=== PATIENT | female | born 1955 | race Caucasian/White ===

== ENCOUNTER 2020-08-12 12:49 | Inpatient (IN) ==
[2020-08-12] MEDS ORDERED: Ipratropium/Albuterol Neb 3 ML IH ONE (17:32)
[2020-08-12] MEDS ORDERED: Nitroglycerin 0.4 MG TAB.SUBL SL SCH (18:15)
[2020-08-12] MEDS: Ipratropium/Albuterol Neb 3 ML IH SCH ×2 (19:47→23:43)
[2020-08-12] MEDS ORDERED: Nitroglycerin 0.4 MG TAB.SUBL SL PRN (20:28)
[2020-08-12] MEDS ORDERED: 0.9 % Sodium Chloride 250 ML ONE (21:09)
[2020-08-12] MEDS: Artificial Tears SOLN 15 ML BOTTLE BOTH EYES SCH (22:15)
[2020-08-12] MEDS: Metoclopramide 10 MG/10 ML UD.LIQ GTUBE SCH (22:34)
[2020-08-12] MEDS: rOPINIRole 1 MG TABLET GTUBE SCH (22:35)
[2020-08-13] MEDS ORDERED: Ipratropium/Albuterol Neb 3 ML IH SCH
[2020-08-13] MEDS: Artificial Tears SOLN 15 ML BOTTLE BOTH EYES SCH ×5 (00:15→18:41)
[2020-08-13] MEDS ORDERED: 0.9 % Sodium Chloride 250 ML ONE (01:50)
[2020-08-13] MEDS: Ipratropium/Albuterol Neb 3 ML IH SCH ×6 (04:06→23:38)
[2020-08-13 06:51] LABS: Basophils # 0.1 K/mcL (0.0-0.2); Basophils % 0.5 %; Eosinophils # 0.5 K/mcL (0.0-0.6); Eosinophils % 4.2 %; Hematocrit 27.9 % (35.3-44.9); Hemoglobin 9.1 g/dL (11.5-15.4); Immature Granulocytes % 0.4 % (0-4); Lymphocytes # 0.9 K/mcL (0.6-4.6); Lymphocytes % 8.2 %; Mean Corpuscular HGB Conc 32.6 g/dL (31.6-35.5); Mean Corpuscular Hemoglobin 33.1 pg (28.0-33.3); Mean Corpuscular Volume 101.5 fL (83.0-100.0); Mean Platelet Volume 9.7 fL (9.4-12.4); Monocytes # 1.4 K/mcL (0.0-1.3); Monocytes % 12.3 %; Neutrophils # 8.4 K/mcL (1.6-8.9); Platelet Count 199 K/mcL (140-400); Red Blood Count 2.75 M/mcL (3.82-4.97); Red Cell Distribution Width 18.7 % (11.5-14.5); Segmented Neutrophils % 74.4 %; White Blood Count 11.3 K/mcL (4.3-11.1)
[2020-08-13 07:11] LABS: Calcium 9.6 mg/dL (8.6-10.3); Potassium 4.8 mEq/L (3.5-5.1)
[2020-08-13] MEDS ORDERED: carvediloL 6.25 MG TABLET GTUBE SCH (08:00)
[2020-08-13] MEDS: Metoclopramide 10 MG/10 ML UD.LIQ GTUBE SCH ×2 (08:22→20:59)
[2020-08-13] MEDS: rOPINIRole 1 MG TABLET GTUBE SCH ×2 (08:22→20:58)
[2020-08-13] MEDS: Fluconazole 40 MG/ML UDC PO SCH (08:24)
[2020-08-13 08:46] LABS: Prothrombin Time 11.9 Seconds (9.4-12.1)
[2020-08-13] MEDS ORDERED: *HR* Propofol 200 MG/20 ML VIAL IVP ONE (10:48)
[2020-08-13 11:17] LABS: Hepatitis B Surface Antibody < 3.10 mIU/mL
[2020-08-13 11:28] LABS: Hepatitis B Surface Antigen Nonreactive (Nonreactive)
[2020-08-13] MEDS ORDERED: NON-FORMULARY MEDICATION 1 EACH EACH (Midodrine Hcl 10 MG Tablet) PO SCH (18:30)
[2020-08-13] MEDS: levETIRAcetam 500 MG/5 ML UDC GTUBE SCH (20:59)
[2020-08-13] MEDS: Chlorhexidine Rinse 15 ML MOUTHWASH MM SCH (20:59)
[2020-08-13] MEDS: Melatonin 3 MG TABLET GTUBE SCH (21:00)
[2020-08-14 01:24] LABS: Hematocrit 25.4 % (35.3-44.9); Mean Corpuscular HGB Conc 31.5 g/dL (31.6-35.5); Mean Corpuscular Hemoglobin 32.1 pg (28.0-33.3); Mean Platelet Volume 9.7 fL (9.4-12.4); Platelet Count 180 K/mcL (140-400); Red Blood Count 2.49 M/mcL (3.82-4.97); Red Cell Distribution Width 18.6 % (11.5-14.5)
[2020-08-14 01:47] LABS: Calcium 9.4 mg/dL (8.6-10.3); Potassium 4.8 mEq/L (3.5-5.1)
[2020-08-14] MEDS: Ipratropium/Albuterol Neb 3 ML IH SCH ×5 (03:54→20:39)
[2020-08-14] MEDS: Artificial Tears SOLN 15 ML BOTTLE BOTH EYES SCH ×7 (05:29→21:46)
[2020-08-14] MEDS ORDERED: 0.9 % Sodium Chloride 2,000 ML ONE (06:39)
[2020-08-14] MEDS ORDERED: *HR* Heparin 10,000 UNIT/10 ML VIAL IV PRN (07:31)
[2020-08-14] MEDS ORDERED: 0.9 % Sodium Chloride 250 ML IVC PRN (07:31)
[2020-08-14] MEDS ORDERED: 0.9 % Sodium Chloride 1,000 ML PRIME SCH (07:45)
[2020-08-14] MEDS ORDERED: predniSONE 10 MG TABLET GTUBE SCH (09:00)
[2020-08-14] MEDS: Chlorhexidine Rinse 15 ML MOUTHWASH MM SCH ×2 (09:28→21:45)
[2020-08-14] MEDS: Metoclopramide 10 MG/10 ML UD.LIQ GTUBE SCH ×2 (09:28→21:45)
[2020-08-14] MEDS: levETIRAcetam 500 MG/5 ML UDC GTUBE SCH ×2 (09:29→21:44)
[2020-08-14] MEDS: rOPINIRole 1 MG TABLET GTUBE SCH ×2 (09:32→21:44)
[2020-08-14] MEDS ORDERED: *HR* Dextrose 50 % in Water (Vial) 50 ML VIAL IVP PRN (11:10)
[2020-08-14] MEDS ORDERED: Dextrose Gel 15 GM/37.5 ML TUBE PO PRN ×2 (11:10)
[2020-08-14] MEDS ORDERED: D5% in Water 1,000 ML IVC PRN (11:10)
[2020-08-14] MEDS: Insulin LISPRO 300 UNITS/3 ML VIAL SUBQ SCH ×3 (14:16→21:46)
[2020-08-14] MEDS ORDERED: Insulin DETEMIR 100 UNIT/ML X5UNITS SUBQ SCH (21:00)
[2020-08-14] MEDS: Melatonin 3 MG TABLET GTUBE SCH (21:44)
[2020-08-15] MEDS: Artificial Tears SOLN 15 ML BOTTLE BOTH EYES SCH ×6 (00:20→22:15)
[2020-08-15] MEDS: Insulin LISPRO 300 UNITS/3 ML VIAL SUBQ SCH ×6 (00:20→22:16)
[2020-08-15] MEDS: Ipratropium/Albuterol Neb 3 ML IH SCH ×7 (00:22→22:52)
[2020-08-15 05:32] LABS: Hematocrit 23.8 % (35.3-44.9); Hemoglobin 7.8 g/dL (11.5-15.4); Mean Corpuscular HGB Conc 32.8 g/dL (31.6-35.5); Mean Corpuscular Hemoglobin 33.5 pg (28.0-33.3); Mean Corpuscular Volume 102.1 fL (83.0-100.0); Mean Platelet Volume 9.7 fL (9.4-12.4); Platelet Count 190 K/mcL (140-400); Red Blood Count 2.33 M/mcL (3.82-4.97); Red Cell Distribution Width 18.4 % (11.5-14.5); White Blood Count 8.9 K/mcL (4.3-11.1)
[2020-08-15 05:50] LABS: Calcium 9.4 mg/dL (8.6-10.3); Magnesium 2.2 mg/dL (1.6-2.6)
[2020-08-15 05:52] LABS: Phosphorous 4.1 mg/dL (2.7-4.5)
[2020-08-15] MEDS ORDERED: Iron Sucrose Complex 400 MG in 0.9 % Sodium Chloride 250 ML IVPB ONE (07:14)
[2020-08-15] MEDS: rOPINIRole 1 MG TABLET GTUBE SCH ×2 (07:28→22:13)
[2020-08-15] MEDS: Sennosides/Docusate Sodium TABLET GTUBE SCH (07:29)
[2020-08-15] MEDS: Metoclopramide 10 MG/10 ML UD.LIQ GTUBE SCH ×2 (07:30→22:15)
[2020-08-15] MEDS: levETIRAcetam 500 MG/5 ML UDC GTUBE SCH ×2 (07:30→22:15)
[2020-08-15] MEDS: Chlorhexidine Rinse 15 ML MOUTHWASH MM SCH ×2 (07:30→22:14)
[2020-08-15] MEDS: Fluconazole 40 MG/ML UDC GTUBE SCH (07:35)
[2020-08-15] MEDS ORDERED: Isovue-370 500 ML BOTTLE IVP ONE (08:28)
[2020-08-15] MEDS ORDERED: Vancomycin 1,750 MG/517.5 ML IV.SOLN IVPB ONE (08:51)
[2020-08-15] MEDS ORDERED: Vancomycin 1,750 MG in 0.9 % Sodium Chloride 250 ML IVPB SCH (09:00)
[2020-08-15] MEDS ORDERED: Aspirin Enteric Coated 81 MG Tablet PO SCH (09:00)
[2020-08-15] MEDS: Cefepime HCl 1,000 MG in 0.9 % Sodium Chloride Mini Bag 100 ML IVPB SCH (10:52)
[2020-08-15] MEDS: MetroNIDAZOLE 500 MG/100 ML 500 MG/100 ML BAG IVPB SCH ×2 (10:52→15:32)
[2020-08-15] MEDS ORDERED: Isovue-370 500 ML BOTTLE PO ONE (11:53)
[2020-08-15] MEDS: Melatonin 3 MG TABLET GTUBE SCH (22:14)
[2020-08-15] MEDS: Insulin DETEMIR 100 UNIT/ML X5UNITS SUBQ SCH (22:15)
[2020-08-16] MEDS: MetroNIDAZOLE 500 MG/100 ML 500 MG/100 ML BAG IVPB SCH ×3 (00:17→22:08)
[2020-08-16] MEDS: Insulin LISPRO 300 UNITS/3 ML VIAL SUBQ SCH ×7 (00:18→23:50)
[2020-08-16] MEDS: Artificial Tears SOLN 15 ML BOTTLE BOTH EYES SCH ×7 (00:18→23:49)
[2020-08-16 01:46] LABS: Basophils % 0.4 %; Eosinophils # 0.5 K/mcL (0.0-0.6); Eosinophils % 4.2 %; Hematocrit 24.7 % (35.3-44.9); Hemoglobin 7.8 g/dL (11.5-15.4); Immature Granulocytes % 0.3 % (0-4); Lymphocytes # 0.5 K/mcL (0.6-4.6); Lymphocytes % 4.4 %; Mean Corpuscular HGB Conc 31.6 g/dL (31.6-35.5); Mean Corpuscular Hemoglobin 33.1 pg (28.0-33.3); Mean Corpuscular Volume 104.7 fL (83.0-100.0); Mean Platelet Volume 9.4 fL (9.4-12.4); Monocytes # 1.1 K/mcL (0.0-1.3); Monocytes % 10.1 %; Neutrophils # 9.1 K/mcL (1.6-8.9); Platelet Count 190 K/mcL (140-400); Red Blood Count 2.36 M/mcL (3.82-4.97); Red Cell Distribution Width 18.4 % (11.5-14.5); Segmented Neutrophils % 80.6 %; White Blood Count 11.3 K/mcL (4.3-11.1)
[2020-08-16 02:10] LABS: Albumin 3.1 g/dL (3.5-5.7); Albumin/Globulin Ratio 1.2 (1.1-2.2); Bilirubin,Total 0.4 mg/dL (0.3-1.0); Calcium 9.6 mg/dL (8.6-10.3); Globulin 2.6 g/dL (2.4-3.5); Magnesium 2.4 mg/dL (1.6-2.6); Phosphorous 4.8 mg/dL (2.7-4.5); Potassium 3.9 mEq/L (3.5-5.1); Total Protein 5.7 g/dL (6.4-8.9)
[2020-08-16] MEDS: Ipratropium/Albuterol Neb 3 ML IH SCH ×6 (04:09→23:13)
[2020-08-16] MEDS ORDERED: 0.9 % Sodium Chloride 250 ML IVC PRN (07:36)
[2020-08-16] MEDS ORDERED: 0.9 % Sodium Chloride 1,000 ML PRIME SCH (07:45)
[2020-08-16] MEDS: Docusate Oral Soln 100 MG/10 ML UDC GTUBE SCH (10:00)
[2020-08-16] MEDS: Aspirin 81 MG TAB.CHEW GTUBE SCH (10:01)
[2020-08-16] MEDS: Sennosides/Docusate Sodium TABLET GTUBE SCH (10:01)
[2020-08-16] MEDS: rOPINIRole 1 MG TABLET GTUBE SCH ×2 (10:01→20:02)
[2020-08-16] MEDS: levETIRAcetam 500 MG/5 ML UDC GTUBE SCH ×2 (10:01→20:03)
[2020-08-16] MEDS: Metoclopramide 10 MG/10 ML UD.LIQ GTUBE SCH ×2 (10:01→20:02)
[2020-08-16] MEDS: Chlorhexidine Rinse 15 ML MOUTHWASH MM SCH ×2 (10:02→20:08)
[2020-08-16] MEDS: Fluconazole 40 MG/ML UDC GTUBE SCH (13:54)
[2020-08-16 15:42] LABS: Adenovirus Not Detected (Not Detect); Bordetella Pertussis Not Detected (Not Detect); Chlamydophila pneumoniae Not Detected (Not Detect); Coronavirus 229E Not Detected (Not Detect); Coronavirus HKU1 Not Detected (Not Detect); Coronavirus NL63 Not Detected (Not Detect); Coronavirus OC43 Not Detected (Not Detect); Human Metapneumovirus Not Detected (Not Detect); Human Rhinovirus/Enterovirus Not Detected (Not Detect); Influenza A Subtype 2009 H1 Not Detected (Not Detect); Influenza B Not Detected (Not Detect); Mycoplasma pneumoniae Not Detected (Not Detect); Parainfluenza Virus 1 Not Detected (Not Detect); Parainfluenza Virus 2 Not Detected (Not Detect); Parainfluenza Virus 3 Not Detected (Not Detect); Parainfluenza Virus 4 Not Detected (Not Detect); Respiratory Syncytial Virus Not Detected (Not Detect); SARS-CoV-2 Not Detected (Not Detect)
[2020-08-16] MEDS: Cefepime HCl 1,000 MG in 0.9 % Sodium Chloride Mini Bag 100 ML IVPB SCH (17:52)
[2020-08-16] MEDS: Insulin DETEMIR 100 UNIT/ML X5UNITS SUBQ SCH (20:01)
[2020-08-16] MEDS: Melatonin 3 MG TABLET GTUBE SCH (20:13)
[2020-08-17] MEDS: Insulin LISPRO 300 UNITS/3 ML VIAL SUBQ SCH ×5 (04:11→20:42)
[2020-08-17] MEDS: Artificial Tears SOLN 15 ML BOTTLE BOTH EYES SCH ×5 (04:11→20:43)
[2020-08-17] MEDS: Ipratropium/Albuterol Neb 3 ML IH SCH ×5 (04:15→19:50)
[2020-08-17 05:32] LABS: Basophils % 0.3 %; Eosinophils # 0.8 K/mcL (0.0-0.6); Eosinophils % 7.5 %; Hemoglobin 8.1 g/dL (11.5-15.4); Immature Granulocytes % 0.4 % (0-4); Lymphocytes # 0.5 K/mcL (0.6-4.6); Lymphocytes % 4.9 %; Mean Corpuscular HGB Conc 31.2 g/dL (31.6-35.5); Mean Corpuscular Hemoglobin 33.3 pg (28.0-33.3); Mean Platelet Volume 9.4 fL (9.4-12.4); Monocytes # 1.3 K/mcL (0.0-1.3); Monocytes % 11.9 %; Platelet Count 173 K/mcL (140-400); Red Blood Count 2.43 M/mcL (3.82-4.97); Red Cell Distribution Width 17.9 % (11.5-14.5); White Blood Count 10.7 K/mcL (4.3-11.1)
[2020-08-17] MEDS: MetroNIDAZOLE 500 MG/100 ML 500 MG/100 ML BAG IVPB SCH ×4 (05:37→20:40)
[2020-08-17] MEDS: Fluconazole 40 MG/ML UDC PO SCH (05:40)
[2020-08-17 05:54] LABS: Albumin 3.1 g/dL (3.5-5.7); Albumin/Globulin Ratio 1.2 (1.1-2.2); Bilirubin,Total 0.5 mg/dL (0.3-1.0); Calcium 9.6 mg/dL (8.6-10.3); Globulin 2.6 g/dL (2.4-3.5); Potassium 3.9 mEq/L (3.5-5.1); Total Protein 5.7 g/dL (6.4-8.9)
[2020-08-17] MEDS: Sennosides/Docusate Sodium TABLET GTUBE SCH (09:26)
[2020-08-17] MEDS: Docusate Oral Soln 100 MG/10 ML UDC GTUBE SCH (09:27)
[2020-08-17] MEDS: Chlorhexidine Rinse 15 ML MOUTHWASH MM SCH ×2 (09:28→20:36)
[2020-08-17] MEDS: levETIRAcetam 500 MG/5 ML UDC GTUBE SCH ×2 (09:28→20:36)
[2020-08-17] MEDS: Metoclopramide 10 MG/10 ML UD.LIQ GTUBE SCH ×2 (09:28→20:36)
[2020-08-17] MEDS: rOPINIRole 1 MG TABLET GTUBE SCH ×2 (09:28→20:36)
[2020-08-17] MEDS: Cefepime HCl 1,000 MG in 0.9 % Sodium Chloride Mini Bag 100 ML IVPB SCH ×2 (09:28→20:37)
[2020-08-17] MEDS: Aspirin 81 MG TAB.CHEW GTUBE SCH (09:28)
[2020-08-17] MEDS: Fluconazole 40 MG/ML UDC GTUBE SCH (09:30)
[2020-08-17] MEDS: Insulin DETEMIR 100 UNIT/ML X5UNITS SUBQ SCH (20:35)
[2020-08-17] MEDS: Melatonin 3 MG TABLET GTUBE SCH (20:36)
[2020-08-18] MEDS: Ipratropium/Albuterol Neb 3 ML IH SCH ×7 (00:12→23:23)
[2020-08-18] MEDS: Artificial Tears SOLN 15 ML BOTTLE BOTH EYES SCH ×6 (00:21→20:21)
[2020-08-18] MEDS: Insulin LISPRO 300 UNITS/3 ML VIAL SUBQ SCH ×6 (00:21→20:19)
[2020-08-18 06:06] LABS: Basophils % 0.2 %; Eosinophils # 0.7 K/mcL (0.0-0.6); Eosinophils % 7.5 %; Hemoglobin 7.5 g/dL (11.5-15.4); Immature Granulocytes % 0.3 % (0-4); Lymphocytes # 0.4 K/mcL (0.6-4.6); Lymphocytes % 4.9 %; Mean Corpuscular HGB Conc 31.3 g/dL (31.6-35.5); Mean Corpuscular Volume 105.7 fL (83.0-100.0); Mean Platelet Volume 9.5 fL (9.4-12.4); Monocytes # 0.8 K/mcL (0.0-1.3); Monocytes % 9.7 %; Neutrophils # 6.7 K/mcL (1.6-8.9); Platelet Count 166 K/mcL (140-400); Red Blood Count 2.27 M/mcL (3.82-4.97); Red Cell Distribution Width 17.4 % (11.5-14.5); Segmented Neutrophils % 77.4 %; White Blood Count 8.6 K/mcL (4.3-11.1)
[2020-08-18 06:27] LABS: Albumin 2.8 g/dL (3.5-5.7); Albumin/Globulin Ratio 1.1 (1.1-2.2); Bilirubin,Total 0.5 mg/dL (0.3-1.0); Calcium 9.8 mg/dL (8.6-10.3); Globulin 2.5 g/dL (2.4-3.5); Potassium 3.8 mEq/L (3.5-5.1); Total Protein 5.3 g/dL (6.4-8.9)
[2020-08-18] MEDS: MetroNIDAZOLE 500 MG/100 ML 500 MG/100 ML BAG IVPB SCH ×3 (07:50→20:22)
[2020-08-18] MEDS: levETIRAcetam 500 MG/5 ML UDC GTUBE SCH ×2 (07:50→20:23)
[2020-08-18] MEDS: rOPINIRole 1 MG TABLET GTUBE SCH ×2 (07:51→20:23)
[2020-08-18] MEDS: Aspirin 81 MG TAB.CHEW GTUBE SCH (07:51)
[2020-08-18] MEDS: Metoclopramide 10 MG/10 ML UD.LIQ GTUBE SCH ×2 (07:51→20:23)
[2020-08-18] MEDS: Chlorhexidine Rinse 15 ML MOUTHWASH MM SCH ×2 (07:51→20:23)
[2020-08-18] MEDS: Docusate Oral Soln 100 MG/10 ML UDC GTUBE SCH (07:52)
[2020-08-18] MEDS: Sennosides/Docusate Sodium TABLET GTUBE SCH (07:53)
[2020-08-18] MEDS: Fluconazole 40 MG/ML UDC GTUBE SCH (12:29)
[2020-08-18] MEDS: Insulin DETEMIR 100 UNIT/ML X5UNITS SUBQ SCH (20:22)
[2020-08-18] MEDS: Melatonin 3 MG TABLET GTUBE SCH (20:23)
[2020-08-19] MEDS: Insulin LISPRO 300 UNITS/3 ML VIAL SUBQ SCH ×6 (00:02→21:22)
[2020-08-19] MEDS: Artificial Tears SOLN 15 ML BOTTLE BOTH EYES SCH ×6 (00:03→20:44)
[2020-08-19] MEDS: Ipratropium/Albuterol Neb 3 ML IH SCH ×6 (04:11→22:49)
[2020-08-19 04:49] LABS: Basophils % 0.3 %; Eosinophils # 0.6 K/mcL (0.0-0.6); Eosinophils % 6.7 %; Hematocrit 24.1 % (35.3-44.9); Hemoglobin 7.7 g/dL (11.5-15.4); Immature Granulocytes % 0.4 % (0-4); Lymphocytes # 0.4 K/mcL (0.6-4.6); Lymphocytes % 4.7 %; Mean Corpuscular Hemoglobin 33.9 pg (28.0-33.3); Mean Corpuscular Volume 106.2 fL (83.0-100.0); Mean Platelet Volume 9.5 fL (9.4-12.4); Monocytes % 10.4 %; Neutrophils # 7.2 K/mcL (1.6-8.9); Platelet Count 182 K/mcL (140-400); Red Blood Count 2.27 M/mcL (3.82-4.97); Red Cell Distribution Width 17.2 % (11.5-14.5); Segmented Neutrophils % 77.5 %; White Blood Count 9.3 K/mcL (4.3-11.1)
[2020-08-19 05:28] LABS: Albumin 2.8 g/dL (3.5-5.7); Albumin/Globulin Ratio 1.1 (1.1-2.2); Bilirubin,Total 0.5 mg/dL (0.3-1.0); Calcium 9.9 mg/dL (8.6-10.3); Globulin 2.6 g/dL (2.4-3.5); Potassium 4.4 mEq/L (3.5-5.1); Total Protein 5.4 g/dL (6.4-8.9)
[2020-08-19] MEDS: MetroNIDAZOLE 500 MG/100 ML 500 MG/100 ML BAG IVPB SCH ×2 (06:09→12:58)
[2020-08-19] MEDS ORDERED: 0.9 % Sodium Chloride 250 ML IVC PRN (07:33)
[2020-08-19] MEDS ORDERED: 0.9 % Sodium Chloride 1,000 ML PRIME SCH (07:45)
[2020-08-19] MEDS: rOPINIRole 1 MG TABLET GTUBE SCH ×2 (07:48→20:43)
[2020-08-19] MEDS: Docusate Oral Soln 100 MG/10 ML UDC GTUBE SCH (07:48)
[2020-08-19] MEDS: Sennosides/Docusate Sodium TABLET GTUBE SCH (07:49)
[2020-08-19] MEDS: Metoclopramide 10 MG/10 ML UD.LIQ GTUBE SCH ×2 (07:49→20:43)
[2020-08-19] MEDS: levETIRAcetam 500 MG/5 ML UDC GTUBE SCH ×2 (07:49→20:43)
[2020-08-19] MEDS: Aspirin 81 MG TAB.CHEW GTUBE SCH (07:49)
[2020-08-19] MEDS: Chlorhexidine Rinse 15 ML MOUTHWASH MM SCH ×2 (07:49→20:43)
[2020-08-19] MEDS: Fluconazole 40 MG/ML UDC GTUBE SCH (07:50)
[2020-08-19] MEDS: Meropenem 1,000 MG in Water for inj. (sterile) 20 ML IVP SCH (17:01)
[2020-08-19] MEDS: Insulin DETEMIR 100 UNIT/ML X5UNITS SUBQ SCH (20:40)
[2020-08-19] MEDS: Melatonin 3 MG TABLET GTUBE SCH (20:43)
[2020-08-20] MEDS: Insulin LISPRO 300 UNITS/3 ML VIAL SUBQ SCH ×6 (01:27→21:56)
[2020-08-20] MEDS: Artificial Tears SOLN 15 ML BOTTLE BOTH EYES SCH ×6 (01:27→21:32)
[2020-08-20 01:49] LABS: Hematocrit 23.3 % (35.3-44.9); Hemoglobin 7.4 g/dL (11.5-15.4); Mean Corpuscular HGB Conc 31.8 g/dL (31.6-35.5); Mean Corpuscular Hemoglobin 33.5 pg (28.0-33.3); Mean Corpuscular Volume 105.4 fL (83.0-100.0); Mean Platelet Volume 9.5 fL (9.4-12.4); Platelet Count 188 K/mcL (140-400); Red Blood Count 2.21 M/mcL (3.82-4.97); Red Cell Distribution Width 17.2 % (11.5-14.5)
[2020-08-20 02:09] LABS: Calcium 8.7 mg/dL (8.6-10.3); Potassium 3.4 mEq/L (3.5-5.1)
[2020-08-20] MEDS: Ipratropium/Albuterol Neb 3 ML IH SCH ×5 (04:08→19:41)
[2020-08-20] MEDS: Sennosides/Docusate Sodium TABLET GTUBE SCH (09:27)
[2020-08-20] MEDS: rOPINIRole 1 MG TABLET GTUBE SCH ×2 (09:27→21:31)
[2020-08-20] MEDS: levETIRAcetam 500 MG/5 ML UDC GTUBE SCH ×2 (09:28→21:30)
[2020-08-20] MEDS: Docusate Oral Soln 100 MG/10 ML UDC GTUBE SCH (09:28)
[2020-08-20] MEDS: Metoclopramide 10 MG/10 ML UD.LIQ GTUBE SCH ×2 (09:28→21:30)
[2020-08-20] MEDS: Aspirin 81 MG TAB.CHEW GTUBE SCH (09:29)
[2020-08-20] MEDS: Chlorhexidine Rinse 15 ML MOUTHWASH MM SCH ×2 (09:29→21:30)
[2020-08-20] MEDS: Fluconazole 40 MG/ML UDC GTUBE SCH (09:30)
[2020-08-20] MEDS: Meropenem 1,000 MG in Water for inj. (sterile) 20 ML IVP SCH (17:17)
[2020-08-20] MEDS: Melatonin 3 MG TABLET GTUBE SCH (21:32)
[2020-08-20] MEDS: Insulin DETEMIR 100 UNIT/ML X5UNITS SUBQ SCH (21:57)
[2020-08-21] MEDS: Ipratropium/Albuterol Neb 3 ML IH SCH ×7 (00:13→23:44)
[2020-08-21 00:44] LABS: Hematocrit 20.8 % (35.3-44.9); Hemoglobin 6.6 g/dL (11.5-15.4); Mean Corpuscular HGB Conc 31.7 g/dL (31.6-35.5); Mean Corpuscular Hemoglobin 32.7 pg (28.0-33.3); Mean Platelet Volume 9.5 fL (9.4-12.4); Platelet Count 205 K/mcL (140-400); Red Blood Count 2.02 M/mcL (3.82-4.97); Red Cell Distribution Width 17.3 % (11.5-14.5); White Blood Count 8.9 K/mcL (4.3-11.1)
[2020-08-21 01:01] LABS: Calcium 9.3 mg/dL (8.6-10.3); Potassium 3.4 mEq/L (3.5-5.1)
[2020-08-21 01:02] LABS: % Iron Saturation 43 % (15-50); Iron 66 mcg/dL (50-170); Transferrin 109 mg/dL (203-362)
[2020-08-21] MEDS: Artificial Tears SOLN 15 ML BOTTLE BOTH EYES SCH ×6 (01:06→20:19)
[2020-08-21] MEDS: Insulin LISPRO 300 UNITS/3 ML VIAL SUBQ SCH ×6 (01:09→20:51)
[2020-08-21] MEDS ORDERED: 0.9 % Sodium Chloride 250 ML IVC PRN (05:27)
[2020-08-21] MEDS ORDERED: 0.9 % Sodium Chloride 1,000 ML PRIME SCH (05:30)
[2020-08-21] MEDS: Sennosides/Docusate Sodium TABLET GTUBE SCH (10:19)
[2020-08-21] MEDS: rOPINIRole 1 MG TABLET GTUBE SCH ×2 (10:19→20:42)
[2020-08-21] MEDS: Metoclopramide 10 MG/10 ML UD.LIQ GTUBE SCH ×2 (10:20→20:42)
[2020-08-21] MEDS: Docusate Oral Soln 100 MG/10 ML UDC GTUBE SCH (10:20)
[2020-08-21] MEDS: levETIRAcetam 500 MG/5 ML UDC GTUBE SCH ×2 (10:20→20:42)
[2020-08-21] MEDS: Chlorhexidine Rinse 15 ML MOUTHWASH MM SCH ×2 (10:21→20:43)
[2020-08-21] MEDS: Fluconazole 40 MG/ML UDC GTUBE SCH (10:43)
[2020-08-21] MEDS: Meropenem 1,000 MG in Water for inj. (sterile) 20 ML IVP SCH (18:02)
[2020-08-21] MEDS: Melatonin 3 MG TABLET GTUBE SCH (20:42)
[2020-08-21] MEDS: Insulin DETEMIR 100 UNIT/ML X5UNITS SUBQ SCH (20:43)
[2020-08-22] MEDS: Insulin LISPRO 300 UNITS/3 ML VIAL SUBQ SCH ×7 (01:16→23:57)
[2020-08-22] MEDS: Artificial Tears SOLN 15 ML BOTTLE BOTH EYES SCH ×7 (01:20→23:57)
[2020-08-22] MEDS: Ipratropium/Albuterol Neb 3 ML IH SCH ×5 (03:51→19:59)
[2020-08-22 06:15] LABS: Hematocrit 27.5 % (35.3-44.9); Mean Corpuscular HGB Conc 32.4 g/dL (31.6-35.5); Mean Corpuscular Hemoglobin 31.6 pg (28.0-33.3); Mean Corpuscular Volume 97.5 fL (83.0-100.0); Mean Platelet Volume 9.5 fL (9.4-12.4); Platelet Count 200 K/mcL (140-400); Red Blood Count 2.82 M/mcL (3.82-4.97); Red Cell Distribution Width 20.1 % (11.5-14.5); White Blood Count 10.7 K/mcL (4.3-11.1)
[2020-08-22 06:16] LABS: Hemoglobin 8.9 g/dL (11.5-15.4)
[2020-08-22 07:58] LABS: Calcium 9.9 mg/dL (8.6-10.3); Potassium 3.9 mEq/L (3.5-5.1)
[2020-08-22] MEDS: Fluconazole 40 MG/ML UDC GTUBE SCH (08:31)
[2020-08-22] MEDS: Sennosides/Docusate Sodium TABLET GTUBE SCH (08:32)
[2020-08-22] MEDS: Docusate Oral Soln 100 MG/10 ML UDC GTUBE SCH (08:33)
[2020-08-22] MEDS: Chlorhexidine Rinse 15 ML MOUTHWASH MM SCH ×2 (08:33→21:08)
[2020-08-22] MEDS: rOPINIRole 1 MG TABLET GTUBE SCH ×2 (08:33→21:12)
[2020-08-22] MEDS: Metoclopramide 10 MG/10 ML UD.LIQ GTUBE SCH ×2 (08:33→21:12)
[2020-08-22] MEDS: levETIRAcetam 500 MG/5 ML UDC GTUBE SCH (08:33)
[2020-08-22 11:10] LABS: Potassium 3.8 mEq/L (3.5-5.1)
[2020-08-22] MEDS: Meropenem 1,000 MG in Water for inj. (sterile) 20 ML IVP SCH (18:01)
[2020-08-22] MEDS: Insulin DETEMIR 100 UNIT/ML X5UNITS SUBQ SCH (21:12)
[2020-08-22] MEDS: Melatonin 3 MG TABLET GTUBE SCH (21:12)
[2020-08-23] MEDS: Ipratropium/Albuterol Neb 3 ML IH SCH ×6 (00:50→20:17)
[2020-08-23 00:51] LABS: Basophils % 0.4 %; Eosinophils # 0.8 K/mcL (0.0-0.6); Eosinophils % 8.2 %; Hematocrit 26.6 % (35.3-44.9); Hemoglobin 8.6 g/dL (11.5-15.4); Immature Granulocytes % 0.2 % (0-4); Lymphocytes # 0.7 K/mcL (0.6-4.6); Lymphocytes % 7.5 %; Mean Corpuscular HGB Conc 32.3 g/dL (31.6-35.5); Mean Corpuscular Hemoglobin 32.6 pg (28.0-33.3); Mean Corpuscular Volume 100.8 fL (83.0-100.0); Mean Platelet Volume 9.3 fL (9.4-12.4); Monocytes % 10.4 %; Platelet Count 193 K/mcL (140-400); Red Blood Count 2.64 M/mcL (3.82-4.97); Red Cell Distribution Width 19.8 % (11.5-14.5); Segmented Neutrophils % 73.3 %; White Blood Count 9.6 K/mcL (4.3-11.1)
[2020-08-23 01:13] LABS: Calcium 9.7 mg/dL (8.6-10.3); Magnesium 2.4 mg/dL (1.6-2.6); Phosphorous 3.1 mg/dL (2.7-4.5)
[2020-08-23] MEDS: Insulin LISPRO 300 UNITS/3 ML VIAL SUBQ SCH ×5 (04:16→20:54)
[2020-08-23] MEDS: Artificial Tears SOLN 15 ML BOTTLE BOTH EYES SCH ×6 (04:32→23:47)
[2020-08-23] MEDS ORDERED: 0.9 % Sodium Chloride 250 ML IV ONE (07:28)
[2020-08-23] MEDS: Chlorhexidine Rinse 15 ML MOUTHWASH MM SCH ×2 (07:30→20:53)
[2020-08-23] MEDS: Docusate Oral Soln 100 MG/10 ML UDC GTUBE SCH (07:30)
[2020-08-23] MEDS: Sennosides/Docusate Sodium TABLET GTUBE SCH (07:31)
[2020-08-23] MEDS: Fluconazole 40 MG/ML UDC GTUBE SCH (07:31)
[2020-08-23] MEDS: Metoclopramide 10 MG/10 ML UD.LIQ GTUBE SCH ×2 (07:31→20:55)
[2020-08-23] MEDS: rOPINIRole 1 MG TABLET GTUBE SCH ×2 (07:31→20:55)
[2020-08-23] MEDS ORDERED: 0.9 % Sodium Chloride 250 ML IVC PRN (07:43)
[2020-08-23] MEDS ORDERED: 0.9 % Sodium Chloride 1,000 ML PRIME SCH (07:45)
[2020-08-23 07:58] LABS: ABG Base Excess 5 mEq/L (-2 to 3); ABG HCO3 30 mEq/L (21-27); ABG Oxygen Saturation 89 % (95-98); ABG PCO2 47 mmHg (35-45); ABG PH 7.42 pH Units (7.32-7.45); ABG PO2 57 mmHg (85-104); ABG TCO2 32 mEq/L (20-26); Blood Gas VT 400 cc
[2020-08-23] MEDS ORDERED: Acetaminophen IV 1,000 MG/100 ML BAG IVPB ONE (09:09)
[2020-08-23] MEDS ORDERED: *HR* Propofol 200 MG/20 ML VIAL IVP ONE (12:17)
[2020-08-23] MEDS ORDERED: *HR* Phenylephrine 10 MG/ML VIAL IVC ONE (12:17)
[2020-08-23] MEDS ORDERED: 0.9 % Sodium Chloride 1,000 ML IVC ONE ×2 (13:27)
[2020-08-23] MEDS: Norepinephrine 4 MG/254 ML IV.SOLN IVC SCH ×2 (14:59→21:35)
[2020-08-23] MEDS ORDERED: Colistin (Colistimethate) 300 MG in 0.9 % Sodium Chloride 50 ML IVPB ONE (15:15)
[2020-08-23] MEDS: Albumin 25% 25gram/100mL 25 GM/100 ML IV.SOLN IVC SCH ×3 (15:51→20:53)
[2020-08-23 16:42] LABS: Basophils # 0.1 K/mcL (0.0-0.2); Basophils % 0.3 %; Eosinophils # 0.3 K/mcL (0.0-0.6); Hematocrit 28.9 % (35.3-44.9); Hemoglobin 9.3 g/dL (11.5-15.4); Immature Granulocytes % 1.5 % (0-4); Lymphocytes # 0.8 K/mcL (0.6-4.6); Lymphocytes % 2.6 %; Mean Corpuscular HGB Conc 32.2 g/dL (31.6-35.5); Mean Corpuscular Hemoglobin 32.6 pg (28.0-33.3); Mean Corpuscular Volume 101.4 fL (83.0-100.0); Mean Platelet Volume 9.4 fL (9.4-12.4); Monocytes # 2.4 K/mcL (0.0-1.3); Monocytes % 7.7 %; Neutrophils # 27.2 K/mcL (1.6-8.9); Platelet Count 237 K/mcL (140-400); Red Blood Count 2.85 M/mcL (3.82-4.97); Red Cell Distribution Width 19.1 % (11.5-14.5); Segmented Neutrophils % 86.9 %
[2020-08-23 16:47] LABS: Platelet Estimate Normal (Normal); White Blood Count 31.3 K/mcL (4.3-11.1)
[2020-08-23 17:17] LABS: Albumin 2.8 g/dL (3.5-5.7); Albumin/Globulin Ratio 1.1 (1.1-2.2); Bilirubin,Direct 0.2 mg/dL (0.0-0.2); Bilirubin,Indirect 0.4 mg/dL (0.0-1.0); Bilirubin,Total 0.6 mg/dL (0.3-1.0); Calcium 9.2 mg/dL (8.6-10.3); Globulin 2.6 g/dL (2.4-3.5); Potassium 4.8 mEq/L (3.5-5.1); Total Protein 5.4 g/dL (6.4-8.9)
[2020-08-23] MEDS: Meropenem 1,000 MG in Water for inj. (sterile) 20 ML IVP SCH (17:20)
[2020-08-23 17:27] LABS: Troponin I 0.08 ng/mL (< 0.04)
[2020-08-23] MEDS ORDERED: Vancomycin 500 MG in 0.9 % Sodium Chloride Mini Bag 100 ML IVPB ONE (18:00)
[2020-08-23] MEDS: Insulin DETEMIR 100 UNIT/ML X5UNITS SUBQ SCH (20:54)
[2020-08-23] MEDS: Melatonin 3 MG TABLET GTUBE SCH (20:55)
[2020-08-24] MEDS: Ipratropium/Albuterol Neb 3 ML IH SCH ×7 (00:21→23:25)
[2020-08-24 03:32] LABS: Basophils # 0.1 K/mcL (0.0-0.2); Basophils % 0.4 %; Eosinophils # 0.7 K/mcL (0.0-0.6); Eosinophils % 3.4 %; Hematocrit 25.1 % (35.3-44.9); Hemoglobin 8.2 g/dL (11.5-15.4); Immature Granulocytes % 0.7 % (0-4); Lymphocytes # 0.7 K/mcL (0.6-4.6); Lymphocytes % 3.3 %; Mean Corpuscular HGB Conc 32.7 g/dL (31.6-35.5); Mean Corpuscular Hemoglobin 33.2 pg (28.0-33.3); Mean Corpuscular Volume 101.6 fL (83.0-100.0); Mean Platelet Volume 9.2 fL (9.4-12.4); Monocytes # 1.5 K/mcL (0.0-1.3); Monocytes % 7.1 %; Neutrophils # 18.3 K/mcL (1.6-8.9); Platelet Count 200 K/mcL (140-400); Red Blood Count 2.47 M/mcL (3.82-4.97); Red Cell Distribution Width 19.3 % (11.5-14.5); Segmented Neutrophils % 85.1 %; White Blood Count 21.5 K/mcL (4.3-11.1)
[2020-08-24] MEDS: Artificial Tears SOLN 15 ML BOTTLE BOTH EYES SCH ×5 (03:38→19:59)
[2020-08-24 03:51] LABS: Calcium 9.9 mg/dL (8.6-10.3); Magnesium 2.3 mg/dL (1.6-2.6); Phosphorous 2.9 mg/dL (2.7-4.5); Potassium 4.5 mEq/L (3.5-5.1)
[2020-08-24] MEDS: Insulin LISPRO 300 UNITS/3 ML VIAL SUBQ SCH ×6 (04:09→19:59)
[2020-08-24 05:04] LABS: Troponin I 0.08 ng/mL (< 0.04)
[2020-08-24] MEDS ORDERED: 0.9 % Sodium Chloride 250 ML IVC PRN (07:32)
[2020-08-24] MEDS: Metoclopramide 10 MG/10 ML UD.LIQ GTUBE SCH ×2 (08:07→19:57)
[2020-08-24] MEDS: Chlorhexidine Rinse 15 ML MOUTHWASH MM SCH ×2 (08:07→19:56)
[2020-08-24] MEDS: Sennosides/Docusate Sodium TABLET GTUBE SCH (08:08)
[2020-08-24] MEDS: Docusate Oral Soln 100 MG/10 ML UDC GTUBE SCH (08:08)
[2020-08-24] MEDS: Fluconazole 40 MG/ML UDC GTUBE SCH (08:09)
[2020-08-24] MEDS: rOPINIRole 1 MG TABLET GTUBE SCH ×2 (08:09→19:59)
[2020-08-24] MEDS: Norepinephrine 4 MG/254 ML IV.SOLN IVC SCH (15:11)
[2020-08-24] MEDS: Meropenem 1,000 MG in Water for inj. (sterile) 20 ML IVP SCH (16:51)
[2020-08-24] MEDS ORDERED: Colistin (Colistimethate) 130 MG in 0.9 % Sodium Chloride 50 ML IVPB SCH (18:00)
[2020-08-24] MEDS: Insulin DETEMIR 100 UNIT/ML X5UNITS SUBQ SCH (19:57)
[2020-08-24] MEDS: Melatonin 3 MG TABLET GTUBE SCH (19:59)
[2020-08-24] MEDS: Acetylcysteine 10% 2 ML INHSOL IH SCH (20:27)
[2020-08-25 03:30] LABS: Basophils # 0.1 K/mcL (0.0-0.2); Basophils % 0.4 %; Eosinophils # 0.9 K/mcL (0.0-0.6); Eosinophils % 6.5 %; Hematocrit 24.4 % (35.3-44.9); Hemoglobin 7.5 g/dL (11.5-15.4); Immature Granulocytes % 0.4 % (0-4); Lymphocytes # 0.6 K/mcL (0.6-4.6); Lymphocytes % 4.3 %; Mean Corpuscular HGB Conc 30.7 g/dL (31.6-35.5); Mean Corpuscular Hemoglobin 31.9 pg (28.0-33.3); Mean Corpuscular Volume 103.8 fL (83.0-100.0); Mean Platelet Volume 9.3 fL (9.4-12.4); Monocytes # 1.3 K/mcL (0.0-1.3); Monocytes % 9.2 %; Neutrophils # 11.1 K/mcL (1.6-8.9); Platelet Count 191 K/mcL (140-400); Red Blood Count 2.35 M/mcL (3.82-4.97); Red Cell Distribution Width 19.4 % (11.5-14.5); Segmented Neutrophils % 79.2 %
[2020-08-25] MEDS: Artificial Tears SOLN 15 ML BOTTLE BOTH EYES SCH ×6 (03:41→20:43)
[2020-08-25] MEDS: Insulin LISPRO 300 UNITS/3 ML VIAL SUBQ SCH ×5 (03:41→20:42)
[2020-08-25] MEDS: Ipratropium/Albuterol Neb 3 ML IH SCH ×5 (03:50→19:52)
[2020-08-25] MEDS: Acetylcysteine 10% 2 ML INHSOL IH SCH ×4 (03:50→19:52)
[2020-08-25 03:52] LABS: Calcium 9.1 mg/dL (8.6-10.3); Magnesium 2.1 mg/dL (1.6-2.6); Phosphorous 2.6 mg/dL (2.7-4.5); Potassium 3.5 mEq/L (3.5-5.1)
[2020-08-25 04:48] LABS: ABG Base Excess 5 mEq/L (-2 to 3); ABG HCO3 32 mEq/L (21-27); ABG Oxygen Saturation 91 % (95-98); ABG PCO2 57 mmHg (35-45); ABG PH 7.36 pH Units (7.32-7.45); ABG PO2 66 mmHg (85-104); ABG TCO2 34 mEq/L (20-26); Blood Gas VT 400 cc
[2020-08-25] MEDS: Chlorhexidine Rinse 15 ML MOUTHWASH MM SCH ×2 (08:29→20:42)
[2020-08-25] MEDS: Docusate Oral Soln 100 MG/10 ML UDC GTUBE SCH (08:29)
[2020-08-25] MEDS: rOPINIRole 1 MG TABLET GTUBE SCH ×2 (08:30→20:40)
[2020-08-25] MEDS: Sennosides/Docusate Sodium TABLET GTUBE SCH (08:30)
[2020-08-25] MEDS: Metoclopramide 10 MG/10 ML UD.LIQ GTUBE SCH ×2 (08:30→20:40)
[2020-08-25] MEDS: Fluconazole 40 MG/ML UDC GTUBE SCH (08:31)
[2020-08-25] MEDS ORDERED: *HR* Heparin 10,000 UNIT/10 ML VIAL IV PRN (12:55)
[2020-08-25] MEDS ORDERED: Dextrose Gel 15 GM/37.5 ML TUBE PO PRN ×2 (12:55)
[2020-08-25] MEDS ORDERED: Nitroglycerin 0.4 MG TAB.SUBL SL PRN (12:55)
[2020-08-25] MEDS ORDERED: 0.9 % Sodium Chloride 1,000 ML PRIME SCH (12:55)
[2020-08-25] MEDS ORDERED: 0.9 % Sodium Chloride 250 ML IVC PRN (12:55)
[2020-08-25] MEDS ORDERED: D5% in Water 1,000 ML IVC PRN (12:55)
[2020-08-25] MEDS ORDERED: Norepinephrine 4 MG/254 ML IV.SOLN IVC SCH (12:55)
[2020-08-25] MEDS: Meropenem 1,000 MG in Water for inj. (sterile) 20 ML IVP SCH (17:00)
[2020-08-25] MEDS: Colistin (Colistimethate) 130 MG in 0.9 % Sodium Chloride 50 ML IVPB SCH (20:39)
[2020-08-25] MEDS: Melatonin 3 MG TABLET GTUBE SCH (20:40)
[2020-08-25] MEDS: Insulin DETEMIR 100 UNIT/ML X5UNITS SUBQ SCH (20:41)
[2020-08-26] MEDS: Artificial Tears SOLN 15 ML BOTTLE BOTH EYES SCH ×6 (00:01→22:41)
[2020-08-26] MEDS: Ipratropium/Albuterol Neb 3 ML IH SCH ×7 (00:04→23:13)
[2020-08-26] MEDS: Insulin LISPRO 300 UNITS/3 ML VIAL SUBQ SCH ×6 (00:13→22:41)
[2020-08-26 04:01] LABS: Basophils # 0.1 K/mcL (0.0-0.2); Basophils % 0.5 %; Eosinophils # 0.9 K/mcL (0.0-0.6); Eosinophils % 8.4 %; Hematocrit 23.1 % (35.3-44.9); Hemoglobin 7.1 g/dL (11.5-15.4); Immature Granulocytes % 0.4 % (0-4); Lymphocytes # 0.5 K/mcL (0.6-4.6); Lymphocytes % 4.7 %; Mean Corpuscular HGB Conc 30.7 g/dL (31.6-35.5); Mean Corpuscular Hemoglobin 32.4 pg (28.0-33.3); Mean Corpuscular Volume 105.5 fL (83.0-100.0); Mean Platelet Volume 9.4 fL (9.4-12.4); Monocytes % 9.5 %; Neutrophils # 7.7 K/mcL (1.6-8.9); Platelet Count 198 K/mcL (140-400); Red Blood Count 2.19 M/mcL (3.82-4.97); Red Cell Distribution Width 18.6 % (11.5-14.5); Segmented Neutrophils % 76.5 %; White Blood Count 10.1 K/mcL (4.3-11.1)
[2020-08-26] MEDS: Acetylcysteine 10% 2 ML INHSOL IH SCH ×4 (04:02→19:34)
[2020-08-26 04:20] LABS: Calcium 9.3 mg/dL (8.6-10.3); Magnesium 2.2 mg/dL (1.6-2.6); Phosphorous 3.5 mg/dL (2.7-4.5); Potassium 3.8 mEq/L (3.5-5.1)
[2020-08-26] MEDS ORDERED: 0.9 % Sodium Chloride 250 ML IVC PRN (07:07)
[2020-08-26] MEDS: Docusate Oral Soln 100 MG/10 ML UDC GTUBE SCH (15:18)
[2020-08-26] MEDS: rOPINIRole 1 MG TABLET GTUBE SCH ×2 (15:19→22:38)
[2020-08-26] MEDS: Fluconazole 40 MG/ML UDC GTUBE SCH (15:22)
[2020-08-26] MEDS: Metoclopramide 10 MG/10 ML UD.LIQ GTUBE SCH ×2 (15:22→22:39)
[2020-08-26] MEDS: Sennosides/Docusate Sodium TABLET GTUBE SCH (15:23)
[2020-08-26] MEDS: Chlorhexidine Rinse 15 ML MOUTHWASH MM SCH ×2 (15:23→22:38)
[2020-08-26] MEDS ORDERED: 0.9 % Sodium Chloride 250 ML ONE (15:49)
[2020-08-26] MEDS: Meropenem 1,000 MG in Water for inj. (sterile) 20 ML IVP SCH (18:13)
[2020-08-26] MEDS: Colistin (Colistimethate) 130 MG in 0.9 % Sodium Chloride 50 ML IVPB SCH (18:13)
[2020-08-26] MEDS: Melatonin 3 MG TABLET GTUBE SCH (22:39)
[2020-08-26] MEDS: Insulin DETEMIR 100 UNIT/ML X5UNITS SUBQ SCH (22:59)
[2020-08-27] MEDS: Insulin LISPRO 300 UNITS/3 ML VIAL SUBQ SCH ×6 (00:30→20:43)
[2020-08-27] MEDS: Artificial Tears SOLN 15 ML BOTTLE BOTH EYES SCH ×7 (00:30→20:42)
[2020-08-27] MEDS: Ipratropium/Albuterol Neb 3 ML IH SCH ×6 (03:18→23:14)
[2020-08-27] MEDS: Acetylcysteine 10% 2 ML INHSOL IH SCH ×4 (03:19→19:30)
[2020-08-27 05:44] LABS: Basophils # 0.1 K/mcL (0.0-0.2); Basophils % 0.6 %; Eosinophils # 0.8 K/mcL (0.0-0.6); Eosinophils % 9.9 %; Hematocrit 26.3 % (35.3-44.9); Hemoglobin 8.2 g/dL (11.5-15.4); Immature Granulocytes % 0.4 % (0-4); Lymphocytes # 0.7 K/mcL (0.6-4.6); Lymphocytes % 8.1 %; Mean Corpuscular HGB Conc 31.2 g/dL (31.6-35.5); Mean Corpuscular Hemoglobin 32.2 pg (28.0-33.3); Mean Corpuscular Volume 103.1 fL (83.0-100.0); Mean Platelet Volume 9.9 fL (9.4-12.4); Monocytes # 1.2 K/mcL (0.0-1.3); Monocytes % 14.7 %; Neutrophils # 5.3 K/mcL (1.6-8.9); Platelet Count 204 K/mcL (140-400); Red Blood Count 2.55 M/mcL (3.82-4.97); Red Cell Distribution Width 18.7 % (11.5-14.5); Segmented Neutrophils % 66.3 %
[2020-08-27 05:58] LABS: Calcium 9.2 mg/dL (8.6-10.3); Phosphorous 1.8 mg/dL (2.7-4.5); Potassium 3.5 mEq/L (3.5-5.1)
[2020-08-27] MEDS: Chlorhexidine Rinse 15 ML MOUTHWASH MM SCH ×2 (08:10→20:41)
[2020-08-27] MEDS: Metoclopramide 10 MG/10 ML UD.LIQ GTUBE SCH ×2 (08:10→20:41)
[2020-08-27] MEDS: Docusate Oral Soln 100 MG/10 ML UDC GTUBE SCH (08:11)
[2020-08-27] MEDS: rOPINIRole 1 MG TABLET GTUBE SCH ×2 (08:11→20:42)
[2020-08-27] MEDS: Sennosides/Docusate Sodium TABLET GTUBE SCH (08:11)
[2020-08-27] MEDS: Fluconazole 40 MG/ML UDC GTUBE SCH (08:12)
[2020-08-27 08:56] LABS: Source of Body Fluid LLL BAL
[2020-08-27 16:22] LABS: Appearance of Body Fluid Cloudy (Clear); Volume of Body Fluid 15 mL
[2020-08-27] MEDS: Meropenem 1,000 MG in Water for inj. (sterile) 20 ML IVP SCH (17:09)
[2020-08-27] MEDS: Colistin (Colistimethate) 130 MG in 0.9 % Sodium Chloride 50 ML IVPB SCH (20:41)
[2020-08-27] MEDS: Insulin DETEMIR 100 UNIT/ML X5UNITS SUBQ SCH (20:42)
[2020-08-27] MEDS: Melatonin 3 MG TABLET GTUBE SCH (20:42)
[2020-08-27 22:15] LABS: Hepatitis B Surface Antibody < 3.10 mIU/mL
[2020-08-27 22:25] LABS: Hepatitis B Surface Antigen Nonreactive (Nonreactive)
[2020-08-27 22:54] LABS: Hepatitis B Core IgM Nonreactive (Nonreactive)
[2020-08-28] MEDS: Artificial Tears SOLN 15 ML BOTTLE BOTH EYES SCH ×6 (00:33→21:53)
[2020-08-28] MEDS: Insulin LISPRO 300 UNITS/3 ML VIAL SUBQ SCH ×6 (01:03→20:29)
[2020-08-28] MEDS: *HR* Dextrose 50 % in Water (Vial) 50 ML VIAL IVP PRN ×2 (01:15→04:08)
[2020-08-28 02:13] LABS: Basophils # 0.1 K/mcL (0.0-0.2); Eosinophils # 0.8 K/mcL (0.0-0.6); Eosinophils % 11.4 %; Hematocrit 26.2 % (35.3-44.9); Hemoglobin 8.2 g/dL (11.5-15.4); Immature Granulocytes % 0.5 % (0-4); Lymphocytes # 0.7 K/mcL (0.6-4.6); Lymphocytes % 9.4 %; Mean Corpuscular HGB Conc 31.3 g/dL (31.6-35.5); Mean Corpuscular Volume 102.3 fL (83.0-100.0); Mean Platelet Volume 9.4 fL (9.4-12.4); Monocytes % 12.9 %; Neutrophils # 4.8 K/mcL (1.6-8.9); Platelet Count 207 K/mcL (140-400); Red Blood Count 2.56 M/mcL (3.82-4.97); Red Cell Distribution Width 18.1 % (11.5-14.5); Segmented Neutrophils % 64.8 %; White Blood Count 7.3 K/mcL (4.3-11.1)
[2020-08-28 02:36] LABS: Calcium 10.1 mg/dL (8.6-10.3); Magnesium 2.1 mg/dL (1.6-2.6); Phosphorous 4.9 mg/dL (2.7-4.5); Potassium 3.9 mEq/L (3.5-5.1)
[2020-08-28] MEDS: Ipratropium/Albuterol Neb 3 ML IH SCH ×6 (03:16→23:38)
[2020-08-28] MEDS: Acetylcysteine 10% 2 ML INHSOL IH SCH ×4 (03:16→19:59)
[2020-08-28] MEDS ORDERED: 0.9 % Sodium Chloride 2,000 ML ONE (06:29)
[2020-08-28] MEDS: Chlorhexidine Rinse 15 ML MOUTHWASH MM SCH ×2 (08:05→20:27)
[2020-08-28] MEDS: Metoclopramide 10 MG/10 ML UD.LIQ GTUBE SCH ×2 (08:05→20:27)
[2020-08-28] MEDS: Docusate Oral Soln 100 MG/10 ML UDC GTUBE SCH (08:05)
[2020-08-28] MEDS: rOPINIRole 1 MG TABLET GTUBE SCH ×2 (08:06→20:28)
[2020-08-28] MEDS: Sennosides/Docusate Sodium TABLET GTUBE SCH (08:06)
[2020-08-28] MEDS: Fluconazole 40 MG/ML UDC GTUBE SCH (08:15)
[2020-08-28] MEDS: Colistin (Colistimethate) 130 MG in 0.9 % Sodium Chloride 50 ML IVPB SCH (17:26)
[2020-08-28] MEDS: Meropenem 1,000 MG in Water for inj. (sterile) 20 ML IVP SCH (17:27)
[2020-08-28] MEDS ORDERED: Vancomycin 1,500 MG/265 ML IV.SOLN IVPB SCH (18:00)
[2020-08-28] MEDS: Insulin DETEMIR 100 UNIT/ML X5UNITS SUBQ SCH (20:26)
[2020-08-28] MEDS: Melatonin 3 MG TABLET GTUBE SCH (20:28)
[2020-08-28] MEDS: MetroNIDAZOLE 500 MG/100 ML 500 MG/100 ML BAG IVPB SCH (23:58)
[2020-08-29] MEDS: Insulin LISPRO 300 UNITS/3 ML VIAL SUBQ SCH ×7 (00:01→23:36)
[2020-08-29] MEDS: Artificial Tears SOLN 15 ML BOTTLE BOTH EYES SCH ×7 (01:10→23:34)
[2020-08-29] MEDS: Acetylcysteine 10% 2 ML INHSOL IH SCH ×4 (03:33→20:32)
[2020-08-29] MEDS: Ipratropium/Albuterol Neb 3 ML IH SCH ×5 (03:33→20:32)
[2020-08-29 03:41] LABS: White Blood Count 7.4 K/mcL (4.3-11.1)
[2020-08-29 03:42] LABS: Basophils # 0.1 K/mcL (0.0-0.2); Basophils % 0.9 %; Eosinophils # 0.8 K/mcL (0.0-0.6); Eosinophils % 10.6 %; Hematocrit 24.8 % (35.3-44.9); Hemoglobin 7.9 g/dL (11.5-15.4); Immature Granulocytes % 0.3 % (0-4); Lymphocytes # 0.6 K/mcL (0.6-4.6); Lymphocytes % 8.2 %; Mean Corpuscular HGB Conc 31.9 g/dL (31.6-35.5); Mean Corpuscular Hemoglobin 32.8 pg (28.0-33.3); Mean Corpuscular Volume 102.9 fL (83.0-100.0); Mean Platelet Volume 9.9 fL (9.4-12.4); Monocytes % 13.1 %; Platelet Count 180 K/mcL (140-400); Red Blood Count 2.41 M/mcL (3.82-4.97); Red Cell Distribution Width 17.8 % (11.5-14.5); Segmented Neutrophils % 66.9 %
[2020-08-29 03:59] LABS: Calcium 9.8 mg/dL (8.6-10.3); Magnesium 1.9 mg/dL (1.6-2.6); Phosphorous 2.4 mg/dL (2.7-4.5); Potassium 3.8 mEq/L (3.5-5.1)
[2020-08-29 04:22] LABS: ABG Base Excess 7 mEq/L (-2 to 3); ABG HCO3 33 mEq/L (21-27); ABG Oxygen Saturation 93 % (95-98); ABG PCO2 52 mmHg (35-45); ABG PH 7.41 pH Units (7.32-7.45); ABG PO2 67 mmHg (85-104); ABG TCO2 35 mEq/L (20-26); Blood Gas VT 400 cc
[2020-08-29] MEDS: Sennosides/Docusate Sodium TABLET GTUBE SCH (10:27)
[2020-08-29] MEDS: Chlorhexidine Rinse 15 ML MOUTHWASH MM SCH ×2 (10:27→20:25)
[2020-08-29] MEDS: Metoclopramide 10 MG/10 ML UD.LIQ GTUBE SCH ×2 (10:27→20:25)
[2020-08-29] MEDS: rOPINIRole 1 MG TABLET GTUBE SCH ×2 (10:27→20:25)
[2020-08-29] MEDS: Docusate Oral Soln 100 MG/10 ML UDC GTUBE SCH (10:27)
[2020-08-29] MEDS: Fluconazole 40 MG/ML UDC GTUBE SCH (10:28)
[2020-08-29] MEDS: MetroNIDAZOLE 500 MG/100 ML 500 MG/100 ML BAG IVPB SCH ×3 (10:28→23:33)
[2020-08-29] MEDS: Nystatin POWDER 30 GM BOTTLE TP SCH ×2 (10:29→21:58)
[2020-08-29] MEDS: Colistin (Colistimethate) 130 MG in 0.9 % Sodium Chloride 50 ML IVPB SCH (18:25)
[2020-08-29] MEDS ORDERED: Cefepime HCl 2,000 MG in 0.9 % Sodium Chloride Mini Bag 100 ML IVPB ONE (18:36)
[2020-08-29] MEDS: Melatonin 3 MG TABLET GTUBE SCH (20:25)
[2020-08-29] MEDS: Insulin DETEMIR 100 UNIT/ML X5UNITS SUBQ SCH (21:05)
[2020-08-30] MEDS: Ipratropium/Albuterol Neb 3 ML IH SCH ×8 (00:11→23:30)
[2020-08-30 01:27] LABS: Basophils # 0.1 K/mcL (0.0-0.2); Basophils % 1.3 %; Eosinophils # 0.9 K/mcL (0.0-0.6); Eosinophils % 12.2 %; Hematocrit 27.4 % (35.3-44.9); Hemoglobin 8.4 g/dL (11.5-15.4); Immature Granulocytes % 0.6 % (0-4); Lymphocytes # 0.7 K/mcL (0.6-4.6); Lymphocytes % 9.8 %; Mean Corpuscular HGB Conc 30.7 g/dL (31.6-35.5); Mean Corpuscular Hemoglobin 31.9 pg (28.0-33.3); Mean Corpuscular Volume 104.2 fL (83.0-100.0); Mean Platelet Volume 10.1 fL (9.4-12.4); Monocytes # 0.8 K/mcL (0.0-1.3); Monocytes % 11.1 %; Neutrophils # 4.5 K/mcL (1.6-8.9); Platelet Count 198 K/mcL (140-400); Red Blood Count 2.63 M/mcL (3.82-4.97); Red Cell Distribution Width 17.8 % (11.5-14.5)
[2020-08-30 01:47] LABS: Calcium 10.6 mg/dL (8.6-10.3); Magnesium 2.2 mg/dL (1.6-2.6)
[2020-08-30] MEDS: Artificial Tears SOLN 15 ML BOTTLE BOTH EYES SCH ×5 (03:40→20:56)
[2020-08-30] MEDS: Acetylcysteine 10% 2 ML INHSOL IH SCH ×5 (04:03→19:40)
[2020-08-30] MEDS: Insulin LISPRO 300 UNITS/3 ML VIAL SUBQ SCH ×5 (04:28→20:56)
[2020-08-30] MEDS ORDERED: 0.9 % Sodium Chloride 2,000 ML ONE (06:56)
[2020-08-30] MEDS: MetroNIDAZOLE 500 MG/100 ML 500 MG/100 ML BAG IVPB SCH ×2 (12:11→16:55)
[2020-08-30] MEDS: Chlorhexidine Rinse 15 ML MOUTHWASH MM SCH ×2 (12:19→20:54)
[2020-08-30] MEDS: Docusate Oral Soln 100 MG/10 ML UDC GTUBE SCH (12:19)
[2020-08-30] MEDS: Metoclopramide 10 MG/10 ML UD.LIQ GTUBE SCH ×2 (12:19→20:54)
[2020-08-30] MEDS: rOPINIRole 1 MG TABLET GTUBE SCH ×2 (12:19→20:54)
[2020-08-30] MEDS: Sennosides/Docusate Sodium TABLET GTUBE SCH (12:19)
[2020-08-30] MEDS: Fluconazole 40 MG/ML UDC GTUBE SCH (12:20)
[2020-08-30] MEDS: Nystatin POWDER 30 GM BOTTLE TP SCH ×2 (12:32→20:55)
[2020-08-30] MEDS: Cefepime HCl 2,000 MG in Water for inj. (sterile) 20 ML IVP SCH (16:54)
[2020-08-30] MEDS: Colistin (Colistimethate) 130 MG in 0.9 % Sodium Chloride 50 ML IVPB SCH (18:41)
[2020-08-30] MEDS: Melatonin 3 MG TABLET GTUBE SCH (20:54)
[2020-08-30] MEDS: Insulin DETEMIR 100 UNIT/ML X5UNITS SUBQ SCH (20:56)
[2020-08-31] MEDS: MetroNIDAZOLE 500 MG/100 ML 500 MG/100 ML BAG IVPB SCH ×3 (00:17→17:03)
[2020-08-31] MEDS: Insulin LISPRO 300 UNITS/3 ML VIAL SUBQ SCH ×6 (00:18→20:34)
[2020-08-31] MEDS: Artificial Tears SOLN 15 ML BOTTLE BOTH EYES SCH ×6 (00:19→20:26)
[2020-08-31] MEDS: Ipratropium/Albuterol Neb 3 ML IH SCH ×6 (04:24→23:50)
[2020-08-31] MEDS: Acetylcysteine 10% 2 ML INHSOL IH SCH ×4 (04:25→20:15)
[2020-08-31 04:37] LABS: Basophils # 0.1 K/mcL (0.0-0.2); Basophils % 1.3 %; Eosinophils # 0.8 K/mcL (0.0-0.6); Eosinophils % 8.9 %; Hematocrit 27.6 % (35.3-44.9); Hemoglobin 8.6 g/dL (11.5-15.4); Immature Granulocytes % 0.2 % (0-4); Lymphocytes # 0.6 K/mcL (0.6-4.6); Lymphocytes % 7.3 %; Mean Corpuscular HGB Conc 31.2 g/dL (31.6-35.5); Mean Corpuscular Hemoglobin 31.6 pg (28.0-33.3); Mean Corpuscular Volume 101.5 fL (83.0-100.0); Mean Platelet Volume 9.7 fL (9.4-12.4); Monocytes # 1.2 K/mcL (0.0-1.3); Monocytes % 14.7 %; Neutrophils # 5.7 K/mcL (1.6-8.9); Platelet Count 199 K/mcL (140-400); Red Blood Count 2.72 M/mcL (3.82-4.97); Red Cell Distribution Width 17.9 % (11.5-14.5); Segmented Neutrophils % 67.6 %; White Blood Count 8.4 K/mcL (4.3-11.1)
[2020-08-31 04:39] LABS: VBG HCO3 33 mEq/L (21-27); VBG PCO2 56 mmHg (41-51); VBG PH 7.38 pH Units (7.32-7.42); VBG PO2 78 mmHg (25-50)
[2020-08-31 04:57] LABS: Calcium 10.3 mg/dL (8.6-10.3); Phosphorous 1.7 mg/dL (2.7-4.5); Potassium 3.6 mEq/L (3.5-5.1)
[2020-08-31] MEDS: Chlorhexidine Rinse 15 ML MOUTHWASH MM SCH ×2 (07:57→20:27)
[2020-08-31] MEDS: Metoclopramide 10 MG/10 ML UD.LIQ GTUBE SCH ×3 (07:57→20:54)
[2020-08-31] MEDS: Nystatin POWDER 30 GM BOTTLE TP SCH ×2 (07:58→20:26)
[2020-08-31] MEDS: rOPINIRole 1 MG TABLET GTUBE SCH ×3 (07:58→20:59)
[2020-08-31] MEDS: Sennosides/Docusate Sodium TABLET GTUBE SCH (07:58)
[2020-08-31] MEDS: Docusate Oral Soln 100 MG/10 ML UDC GTUBE SCH (07:58)
[2020-08-31] MEDS: Fluconazole 40 MG/ML UDC GTUBE SCH (07:59)
[2020-08-31] MEDS: Colistin (Colistimethate) 130 MG in 0.9 % Sodium Chloride 50 ML IVPB SCH (18:24)
[2020-08-31] MEDS: Melatonin 3 MG TABLET GTUBE SCH ×2 (20:28→20:59)
[2020-08-31] MEDS: Insulin DETEMIR 100 UNIT/ML X5UNITS SUBQ SCH (20:29)
[2020-09-01] MEDS: MetroNIDAZOLE 500 MG/100 ML 500 MG/100 ML BAG IVPB SCH ×3 (01:04→17:07)
[2020-09-01] MEDS: Artificial Tears SOLN 15 ML BOTTLE BOTH EYES SCH ×6 (01:05→20:06)
[2020-09-01] MEDS: Insulin LISPRO 300 UNITS/3 ML VIAL SUBQ SCH ×6 (01:05→20:07)
[2020-09-01] MEDS: Ipratropium/Albuterol Neb 3 ML IH SCH ×6 (03:44→23:11)
[2020-09-01] MEDS: Acetylcysteine 10% 2 ML INHSOL IH SCH ×4 (03:44→20:07)
[2020-09-01 06:53] LABS: VBG HCO3 32 mEq/L (21-27); VBG PCO2 61 mmHg (41-51); VBG PH 7.33 pH Units (7.32-7.42); VBG PO2 59 mmHg (25-50)
[2020-09-01 06:54] LABS: Basophils # 0.1 K/mcL (0.0-0.2); Basophils % 0.8 %; Eosinophils # 0.8 K/mcL (0.0-0.6); Eosinophils % 11.4 %; Hematocrit 26.3 % (35.3-44.9); Hemoglobin 8.3 g/dL (11.5-15.4); Immature Granulocytes % 0.4 % (0-4); Lymphocytes # 0.6 K/mcL (0.6-4.6); Lymphocytes % 8.7 %; Mean Corpuscular HGB Conc 31.6 g/dL (31.6-35.5); Mean Corpuscular Hemoglobin 32.4 pg (28.0-33.3); Mean Corpuscular Volume 102.7 fL (83.0-100.0); Monocytes # 0.7 K/mcL (0.0-1.3); Monocytes % 9.6 %; Neutrophils # 4.9 K/mcL (1.6-8.9); Platelet Count 209 K/mcL (140-400); Red Blood Count 2.56 M/mcL (3.82-4.97); Red Cell Distribution Width 17.6 % (11.5-14.5); Segmented Neutrophils % 69.1 %; White Blood Count 7.1 K/mcL (4.3-11.1)
[2020-09-01 07:13] LABS: Calcium 10.9 mg/dL (8.6-10.3); Magnesium 2.1 mg/dL (1.6-2.6); Phosphorous 3.5 mg/dL (2.7-4.5); Potassium 3.6 mEq/L (3.5-5.1)
[2020-09-01] MEDS: Docusate Oral Soln 100 MG/10 ML UDC GTUBE SCH (08:12)
[2020-09-01] MEDS: Fluconazole 40 MG/ML UDC GTUBE SCH (08:12)
[2020-09-01] MEDS: rOPINIRole 1 MG TABLET GTUBE SCH ×2 (08:12→20:03)
[2020-09-01] MEDS: Chlorhexidine Rinse 15 ML MOUTHWASH MM SCH ×2 (08:12→20:03)
[2020-09-01] MEDS: Sennosides/Docusate Sodium TABLET GTUBE SCH (08:12)
[2020-09-01] MEDS: Metoclopramide 10 MG/10 ML UD.LIQ GTUBE SCH ×2 (08:13→20:03)
[2020-09-01] MEDS: Nystatin POWDER 30 GM BOTTLE TP SCH ×2 (08:14→20:07)
[2020-09-01] MEDS: Colistin (Colistimethate) 130 MG in 0.9 % Sodium Chloride 50 ML IVPB SCH (17:09)
[2020-09-01] MEDS: Melatonin 3 MG TABLET GTUBE SCH (20:03)
[2020-09-01] MEDS: Insulin DETEMIR 100 UNIT/ML X5UNITS SUBQ SCH (20:03)
[2020-09-02] MEDS: MetroNIDAZOLE 500 MG/100 ML 500 MG/100 ML BAG IVPB SCH ×3 (00:34→15:19)
[2020-09-02] MEDS: Insulin LISPRO 300 UNITS/3 ML VIAL SUBQ SCH ×6 (00:37→22:27)
[2020-09-02 00:54] LABS: Basophils # 0.1 K/mcL (0.0-0.2); Basophils % 0.9 %; Eosinophils # 0.9 K/mcL (0.0-0.6); Eosinophils % 10.3 %; Hematocrit 25.5 % (35.3-44.9); Hemoglobin 8.1 g/dL (11.5-15.4); Immature Granulocytes % 0.3 % (0-4); Lymphocytes # 0.7 K/mcL (0.6-4.6); Lymphocytes % 8.4 %; Mean Corpuscular HGB Conc 31.8 g/dL (31.6-35.5); Mean Corpuscular Volume 100.8 fL (83.0-100.0); Mean Platelet Volume 9.9 fL (9.4-12.4); Monocytes # 0.8 K/mcL (0.0-1.3); Monocytes % 8.8 %; Neutrophils # 6.2 K/mcL (1.6-8.9); Platelet Count 235 K/mcL (140-400); Red Blood Count 2.53 M/mcL (3.82-4.97); Red Cell Distribution Width 17.7 % (11.5-14.5); Segmented Neutrophils % 71.3 %; White Blood Count 8.7 K/mcL (4.3-11.1)
[2020-09-02 01:13] LABS: Calcium 10.9 mg/dL (8.6-10.3); Phosphorous 3.7 mg/dL (2.7-4.5); Potassium 3.9 mEq/L (3.5-5.1)
[2020-09-02 01:28] LABS: VBG HCO3 29 mEq/L (21-27); VBG PCO2 44 mmHg (41-51); VBG PH 7.43 pH Units (7.32-7.42); VBG PO2 100 mmHg (25-50)
[2020-09-02] MEDS: Artificial Tears SOLN 15 ML BOTTLE BOTH EYES SCH ×6 (02:41→22:26)
[2020-09-02] MEDS: Acetylcysteine 10% 2 ML INHSOL IH SCH ×4 (03:57→20:04)
[2020-09-02] MEDS: Ipratropium/Albuterol Neb 3 ML IH SCH ×6 (03:57→23:00)
[2020-09-02] MEDS ORDERED: 0.9 % Sodium Chloride 250 ML IVC PRN (07:58)
[2020-09-02] MEDS ORDERED: 0.9 % Sodium Chloride 1,000 ML PRIME SCH (08:00)
[2020-09-02] MEDS: Fluconazole 40 MG/ML UDC GTUBE SCH (09:38)
[2020-09-02] MEDS: Chlorhexidine Rinse 15 ML MOUTHWASH MM SCH ×2 (14:58→22:24)
[2020-09-02] MEDS: Nystatin POWDER 30 GM BOTTLE TP SCH ×2 (14:58→22:27)
[2020-09-02] MEDS: Metoclopramide 10 MG/10 ML UD.LIQ GTUBE SCH ×2 (14:59→22:24)
[2020-09-02] MEDS: rOPINIRole 1 MG TABLET GTUBE SCH ×2 (14:59→22:26)
[2020-09-02] MEDS: Sennosides/Docusate Sodium TABLET GTUBE SCH (15:20)
[2020-09-02] MEDS: Docusate Oral Soln 100 MG/10 ML UDC GTUBE SCH (15:20)
[2020-09-02] MEDS: Colistin (Colistimethate) 130 MG in 0.9 % Sodium Chloride 50 ML IVPB SCH (17:06)
[2020-09-02] MEDS: Cefepime HCl 2,000 MG in Water for inj. (sterile) 20 ML IVP SCH (17:07)
[2020-09-02] MEDS ORDERED: Vancomycin 500 MG in 0.9 % Sodium Chloride Mini Bag 100 ML IVPB ONE (18:00)
[2020-09-02] MEDS: Insulin DETEMIR 100 UNIT/ML X5UNITS SUBQ SCH (22:24)
[2020-09-02] MEDS: Melatonin 3 MG TABLET GTUBE SCH (22:26)
[2020-09-03] MEDS: Insulin LISPRO 300 UNITS/3 ML VIAL SUBQ SCH ×6 (00:08→21:21)
[2020-09-03] MEDS: MetroNIDAZOLE 500 MG/100 ML 500 MG/100 ML BAG IVPB SCH ×3 (00:08→17:10)
[2020-09-03] MEDS: Artificial Tears SOLN 15 ML BOTTLE BOTH EYES SCH ×6 (00:09→21:21)
[2020-09-03] MEDS: Ipratropium/Albuterol Neb 3 ML IH SCH ×6 (03:48→23:11)
[2020-09-03] MEDS: Acetylcysteine 10% 2 ML INHSOL IH SCH ×5 (03:48→19:41)
[2020-09-03 03:52] LABS: Basophils # 0.1 K/mcL (0.0-0.2); Basophils % 0.8 %; Eosinophils % 9.5 %; Hematocrit 26.2 % (35.3-44.9); Hemoglobin 8.2 g/dL (11.5-15.4); Immature Granulocytes % 0.4 % (0-4); Lymphocytes # 0.7 K/mcL (0.6-4.6); Lymphocytes % 6.5 %; Mean Corpuscular HGB Conc 31.3 g/dL (31.6-35.5); Mean Corpuscular Hemoglobin 31.7 pg (28.0-33.3); Mean Corpuscular Volume 101.2 fL (83.0-100.0); Mean Platelet Volume 9.5 fL (9.4-12.4); Monocytes % 9.3 %; Neutrophils # 7.8 K/mcL (1.6-8.9); Platelet Count 234 K/mcL (140-400); Red Blood Count 2.59 M/mcL (3.82-4.97); Red Cell Distribution Width 18.1 % (11.5-14.5); Segmented Neutrophils % 73.5 %; White Blood Count 10.6 K/mcL (4.3-11.1)
[2020-09-03 03:54] LABS: VBG HCO3 31 mEq/L (21-27); VBG PCO2 58 mmHg (41-51); VBG PH 7.33 pH Units (7.32-7.42); VBG PO2 106 mmHg (25-50)
[2020-09-03 04:12] LABS: Calcium 10.7 mg/dL (8.6-10.3); Phosphorous 2.1 mg/dL (2.7-4.5); Potassium 3.9 mEq/L (3.5-5.1)
[2020-09-03] MEDS: Chlorhexidine Rinse 15 ML MOUTHWASH MM SCH ×2 (07:32→21:22)
[2020-09-03] MEDS: Metoclopramide 10 MG/10 ML UD.LIQ GTUBE SCH ×2 (07:32→21:20)
[2020-09-03] MEDS: Docusate Oral Soln 100 MG/10 ML UDC GTUBE SCH (07:32)
[2020-09-03] MEDS: Sennosides/Docusate Sodium TABLET GTUBE SCH (07:33)
[2020-09-03] MEDS: rOPINIRole 1 MG TABLET GTUBE SCH ×2 (07:33→21:20)
[2020-09-03] MEDS: Fluconazole 40 MG/ML UDC GTUBE SCH (07:33)
[2020-09-03] MEDS: Nystatin POWDER 30 GM BOTTLE TP SCH ×2 (07:38→21:21)
[2020-09-03] MEDS: Colistin (Colistimethate) 130 MG in 0.9 % Sodium Chloride 50 ML IVPB SCH (17:11)
[2020-09-03] MEDS: Insulin DETEMIR 100 UNIT/ML X5UNITS SUBQ SCH (21:20)
[2020-09-03] MEDS: Melatonin 3 MG TABLET GTUBE SCH (21:20)
[2020-09-04] MEDS: Artificial Tears SOLN 15 ML BOTTLE BOTH EYES SCH ×6 (00:08→20:59)
[2020-09-04] MEDS: MetroNIDAZOLE 500 MG/100 ML 500 MG/100 ML BAG IVPB SCH ×3 (00:09→17:09)
[2020-09-04] MEDS: Insulin LISPRO 300 UNITS/3 ML VIAL SUBQ SCH ×6 (00:09→20:59)
[2020-09-04 01:47] LABS: VBG HCO3 29 mEq/L (21-27); VBG PCO2 53 mmHg (41-51); VBG PH 7.35 pH Units (7.32-7.42); VBG PO2 224 mmHg (25-50)
[2020-09-04 01:47] LABS: Basophils # 0.1 K/mcL (0.0-0.2); Basophils % 0.8 %; Eosinophils # 1.1 K/mcL (0.0-0.6); Eosinophils % 10.7 %; Hematocrit 25.3 % (35.3-44.9); Hemoglobin 7.8 g/dL (11.5-15.4); Immature Granulocytes % 0.3 % (0-4); Lymphocytes % 9.7 %; Mean Corpuscular HGB Conc 30.8 g/dL (31.6-35.5); Mean Corpuscular Hemoglobin 31.6 pg (28.0-33.3); Mean Corpuscular Volume 102.4 fL (83.0-100.0); Mean Platelet Volume 9.7 fL (9.4-12.4); Monocytes # 0.9 K/mcL (0.0-1.3); Monocytes % 8.5 %; Neutrophils # 7.4 K/mcL (1.6-8.9); Platelet Count 252 K/mcL (140-400); Red Blood Count 2.47 M/mcL (3.82-4.97); Red Cell Distribution Width 17.9 % (11.5-14.5); White Blood Count 10.5 K/mcL (4.3-11.1)
[2020-09-04 02:07] LABS: Calcium 11.4 mg/dL (8.6-10.3); Phosphorous 3.4 mg/dL (2.7-4.5); Potassium 4.1 mEq/L (3.5-5.1)
[2020-09-04] MEDS: Ipratropium/Albuterol Neb 3 ML IH SCH ×6 (03:58→23:31)
[2020-09-04] MEDS: Acetylcysteine 10% 2 ML INHSOL IH SCH ×4 (03:58→20:16)
[2020-09-04] MEDS ORDERED: 0.9 % Sodium Chloride 250 ML IVC PRN (07:26)
[2020-09-04] MEDS ORDERED: 0.9 % Sodium Chloride 1,000 ML PRIME SCH (07:30)
[2020-09-04] MEDS: Docusate Oral Soln 100 MG/10 ML UDC GTUBE SCH (07:43)
[2020-09-04] MEDS: Chlorhexidine Rinse 15 ML MOUTHWASH MM SCH ×2 (07:43→20:58)
[2020-09-04] MEDS: Metoclopramide 10 MG/10 ML UD.LIQ GTUBE SCH ×2 (07:43→20:58)
[2020-09-04] MEDS: Nystatin POWDER 30 GM BOTTLE TP SCH ×2 (07:44→20:59)
[2020-09-04] MEDS: Sennosides/Docusate Sodium TABLET GTUBE SCH (07:44)
[2020-09-04] MEDS: rOPINIRole 1 MG TABLET GTUBE SCH ×2 (07:44→20:58)
[2020-09-04] MEDS ORDERED: Ringers Solution, Lactated 1,000 ML ONE (14:10)
[2020-09-04] MEDS ORDERED: Albumin 25% 25gram/100mL 25 GM/100 ML IV.SOLN IVPB ONE (14:22)
[2020-09-04] MEDS ORDERED: Vancomycin 500 MG in 0.9 % Sodium Chloride Mini Bag 100 ML IVPB ONE (16:00)
[2020-09-04] MEDS: Cefepime HCl 2,000 MG in Water for inj. (sterile) 20 ML IVP SCH (17:07)
[2020-09-04] MEDS: Colistin (Colistimethate) 130 MG in 0.9 % Sodium Chloride 50 ML IVPB SCH (17:09)
[2020-09-04] MEDS: Melatonin 3 MG TABLET GTUBE SCH (20:58)
[2020-09-04] MEDS: Insulin DETEMIR 100 UNIT/ML X5UNITS SUBQ SCH (20:58)
[2020-09-05] MEDS: Artificial Tears SOLN 15 ML BOTTLE BOTH EYES SCH ×6 (00:05→21:10)
[2020-09-05] MEDS: MetroNIDAZOLE 500 MG/100 ML 500 MG/100 ML BAG IVPB SCH ×3 (00:09→16:59)
[2020-09-05] MEDS: Insulin LISPRO 300 UNITS/3 ML VIAL SUBQ SCH ×7 (00:15→23:36)
[2020-09-05] MEDS: Ipratropium/Albuterol Neb 3 ML IH SCH ×6 (03:30→23:04)
[2020-09-05] MEDS: Acetylcysteine 10% 2 ML INHSOL IH SCH ×4 (03:31→20:03)
[2020-09-05 04:08] LABS: Hematocrit 25.5 % (35.3-44.9); Hemoglobin 7.9 g/dL (11.5-15.4); Mean Corpuscular Hemoglobin 31.7 pg (28.0-33.3); Mean Corpuscular Volume 102.4 fL (83.0-100.0); Mean Platelet Volume 9.8 fL (9.4-12.4); Platelet Count 245 K/mcL (140-400); Red Blood Count 2.49 M/mcL (3.82-4.97); Red Cell Distribution Width 18.3 % (11.5-14.5); White Blood Count 10.5 K/mcL (4.3-11.1)
[2020-09-05 04:24] LABS: Calcium 11.2 mg/dL (8.6-10.3); Magnesium 1.9 mg/dL (1.6-2.6); Potassium 3.8 mEq/L (3.5-5.1)
[2020-09-05] MEDS: Metoclopramide 10 MG/10 ML UD.LIQ GTUBE SCH ×3 (09:14→21:09)
[2020-09-05] MEDS: Docusate Oral Soln 100 MG/10 ML UDC GTUBE SCH (09:14)
[2020-09-05] MEDS: Sennosides/Docusate Sodium TABLET GTUBE SCH (09:14)
[2020-09-05] MEDS: rOPINIRole 1 MG TABLET GTUBE SCH ×2 (09:15→21:09)
[2020-09-05] MEDS: Chlorhexidine Rinse 15 ML MOUTHWASH MM SCH ×2 (09:15→21:09)
[2020-09-05] MEDS: Nystatin POWDER 30 GM BOTTLE TP SCH ×2 (09:16→21:09)
[2020-09-05] MEDS: Colistin (Colistimethate) 130 MG in 0.9 % Sodium Chloride 50 ML IVPB SCH (16:59)
[2020-09-05] MEDS: Insulin DETEMIR 100 UNIT/ML X5UNITS SUBQ SCH (21:05)
[2020-09-05] MEDS: Melatonin 3 MG TABLET GTUBE SCH (21:09)
[2020-09-06] MEDS: MetroNIDAZOLE 500 MG/100 ML 500 MG/100 ML BAG IVPB SCH ×2 (00:15→07:42)
[2020-09-06] MEDS: Artificial Tears SOLN 15 ML BOTTLE BOTH EYES SCH ×3 (00:18→07:41)
[2020-09-06] MEDS: Ipratropium/Albuterol Neb 3 ML IH SCH ×3 (04:09→11:46)
[2020-09-06] MEDS: Acetylcysteine 10% 2 ML INHSOL IH SCH ×2 (04:10→11:46)
[2020-09-06] MEDS: Insulin LISPRO 300 UNITS/3 ML VIAL SUBQ SCH ×2 (04:23→07:42)
[2020-09-06] MEDS ORDERED: 0.9 % Sodium Chloride 250 ML IVC PRN (07:13)
[2020-09-06 07:15] LABS: Hematocrit 25.6 % (35.3-44.9); Mean Corpuscular HGB Conc 31.3 g/dL (31.6-35.5); Mean Corpuscular Hemoglobin 31.3 pg (28.0-33.3); Mean Platelet Volume 9.9 fL (9.4-12.4); Platelet Count 286 K/mcL (140-400); Red Blood Count 2.56 M/mcL (3.82-4.97); Red Cell Distribution Width 18.6 % (11.5-14.5); White Blood Count 8.6 K/mcL (4.3-11.1)
[2020-09-06] MEDS ORDERED: 0.9 % Sodium Chloride 1,000 ML PRIME SCH (07:15)
[2020-09-06] MEDS: Chlorhexidine Rinse 15 ML MOUTHWASH MM SCH (07:41)
[2020-09-06] MEDS: Metoclopramide 10 MG/10 ML UD.LIQ GTUBE SCH (07:41)
[2020-09-06] MEDS: Docusate Oral Soln 100 MG/10 ML UDC GTUBE SCH (07:41)
[2020-09-06] MEDS: rOPINIRole 1 MG TABLET GTUBE SCH (07:41)
[2020-09-06] MEDS: Nystatin POWDER 30 GM BOTTLE TP SCH (07:44)
[2020-09-06 08:00] LABS: Calcium 12.1 mg/dL (8.6-10.3); Magnesium 2.1 mg/dL (1.6-2.6); Phosphorous 2.8 mg/dL (2.7-4.5); Potassium 4.1 mEq/L (3.5-5.1)
[2020-09-06] MEDS ORDERED: Isovue-370 500 ML BOTTLE IVP ONE (08:20)
[2020-09-06] MEDS ORDERED: Sennosides/Docusate Sodium TABLET GTUBE SCH (09:00)
[2020-09-06] MEDS ORDERED: Albumin 25% 25gram/100mL 25 GM/100 ML IV.SOLN ONE (10:23)
[2020-09-06] MEDS ORDERED: Albumin 25% 25gram/100mL 25 GM/100 ML IV.SOLN IVPB PRN (10:26)
[2020-09-06 12:39] VITALS: BP 105/64
[2020-09-06] MEDS ORDERED: Vancomycin 500 MG in 0.9 % Sodium Chloride Mini Bag 100 ML IVPB ONE (16:00)
== END 2020-09-06 13:49 | disposition expired | DRG 393 ==
LOC: 2NNU → SUATTDRO 18:07 → ICNU 08-24 05:05 → 2NNU 08-25 13:58
PROVIDERS: ADMIT Family Medicine; ATTEND Pharmacist